=== PATIENT | male | born 1980 ===

== ENCOUNTER 2016-12-04 01:06 | Emergency (ER) | payer OTHER ==
[2016-12-04 02:08] LABS: BASO % 0.6 % (0.0-2.0); EOS # 0.2 K/uL (0.0-0.7); EOS % 3.5 % (0.0-4.0); HEMATOCRIT 45.6 % (35.0-51.0); LYMPH # 1.9 K/uL (1.0-4.3); LYMPH % 30.1 % (20.0-40.0); MEAN CELL VOLUME 89.7 fl (80.0-94.0); MEAN CORPUSCULAR HEMOGLOBIN 30.4 pg (27.0-31.0); MEAN CORPUSCULAR HGB CONC 33.9 g/dL (33.0-37.0); MEAN PLATELET VOLUME 7.5 fl (7.2-11.7); MONO # 0.6 K/uL (0.0-0.8); MONO % 9.7 % (0.0-10.0); NEUT # 3.5 K/uL (1.8-7.0); NEUT % 56.1 % (50.0-75.0); RED CELL DISTRIBUTION WIDTH 13.9 % (11.5-14.5); WHITE BLOOD COUNT 6.3 K/uL (4.8-10.8)
[2016-12-04 02:09] LABS: RBC URINE 1 /hpf (0-3); URINE BACTERIA RARE (<OCC); URINE BILIRUBIN NEGATIVE (NEGATIVE); URINE BLOOD NEGATIVE (NEGATIVE); URINE COLOR YELLOW (YELLOW); URINE GLUCOSE (UA) NEG (Normal); URINE KETONE NEGATIVE (NEGATIVE); URINE LEUKOCYTE ESTERASE NEG Leu/uL (Negative); URINE PROTEIN NEGATIVE (NEGATIVE); URINE UROBILINOGEN 0.2-1.0 mg/dL (0.2-1.0); WBC URINE < 1 /hpf (0-5)
[2016-12-04 02:17] LABS: ALB/GLOB RATIO 1.5 (1.0-2.1); ALCOHOL SERUM 48 mg/dl (0-10); ALKALINE PHOSPHATASE 50 U/L (38-126); ALT/SGPT 60 U/L (21-72); AST/SGOT 50 U/L (17-59); BILIRUBIN,TOTAL 0.3 mg/dl (0.2-1.3); BLOOD UREA NITROGEN 22 mg/dl (9-20); CALCIUM 9.4 mg/dL (8.4-10.2); CARBON DIOXIDE 22 mmol/L (22-30); CHLORIDE 102 mmol/L (98-107); GFR AFRICAN-AMERICAN > 60; GLUCOSE,RANDOM 83 mg/dL (75-110); POTASSIUM 3.6 MMOL/L (3.6-5.0); SODIUM 137 mmol/l (132-148); TOTAL PROTEIN 8.1 G/DL (6.3-8.2)
[2016-12-04 02:32] LABS: PARTIAL THROMBOPLASTIN TIME 35.7 Seconds (25.6-37.1)
--- NOTE | 2016-12-04 03:24 | ED PDOC ---
HPI: General Adult Time Seen by Provider: 12/04/16 01:14 Chief Complaint (Nursing): Altered Mental Status Chief Complaint (Provider): AMS, headache History Per: Patient History/Exam Limitations: no limitations Onset/Duration Of Symptoms: Mins Have you had recent travel within the past 21 days to any of the following countries: [place], [place], [place] or [place]?: No Current Symptoms Are (Timing): Still Present Additional Complaint(s): 36yo male with PMHx including depression and Graves' Disease presents to the ED for evaluation of AMS and headache. Patient was brought to the ED after he had an argument with his boyfriend and subsequently felt confused and complained of a headache. On arrival to ED, patient oriented to person and place but not time. Admits to moderate alcohol use but denies drug use. Past Medical History Reviewed: Historical Data, Nursing Documentation, Vital Signs Vital Signs: Last Vital Signs Temp 97.4 F L 12/04/16 01:19 Pulse 73 12/04/16 01:19 Resp 16 12/04/16 01:19 BP 125/81 12/04/16 01:19 Pulse Ox 98 12/04/16 03:29 - Medical History PMH: Depression, Graves' Disease - Surgical History Surgical History: No Surg Hx - Family History Family History: States: No Known Family Hx - Social History Current smoker - smoking cessation education provided: No Alcohol: Occasional Drugs: Denies - Allergies Allergies/Adverse Reactions: Allergies Allergy/AdvReac Type Severity Reaction Status Date / Time No Known Allergies Allergy Verified 12/04/16 01:16 Review of Systems ROS Statement: Except As Marked, All Systems Reviewed And Found Negative Neurological: Positive for: Altered Mental Status, Headache Physical Exam - Reviewed Nursing Documentation Reviewed: Yes Vital Signs Reviewed: Yes - Physical Exam Appears: Positive for: Well, No Acute Distress Head Exam: Positive for: ATRAUMATIC, NORMAL INSPECTION, NORMOCEPHALIC Skin: Positive for: Normal Color, Warm, Dry Eye Exam: Positive for: Normal appearance, EOMI, PERRL ENT: Positive for: Normal ENT Inspection Neck: Positive for: Normal, Painless ROM, Supple Cardiovascular/Chest: Positive for: Regular Rate, Rhythm. Negative for: Murmur , Tachycardia Respiratory: Positive for: Normal Breath Sounds. Negative for: Wheezing, Respiratory Distress Gastrointestinal/Abdominal: Positive for: Normal Exam, Soft. Negative for: Tenderness Back: Positive for: Normal Inspection. Negative for: L CVA Tenderness, R CVA Tenderness Extremity: Positive for: Normal ROM. Negative for: Deformity, Swelling Neurologic/Psych: Positive for: Alert, Oriented (to person and place ) - Laboratory Results Result Diagrams: 12/04/16 01:55 12/04/16 01:55 - ECG O2 Sat by Pulse Oximetry: 98 Pulse Ox Interpretation: Normal (RA) Medical Decision Making Medical Decision Makin: Impression: 36yo male w/ AMS and headache Plan: CT head EKG Labs Tylenol 975mg PO, IVF reassess 0241: CT head impression: No acute intracranial findings. Clinical correlation and followup is recommended as clinically warranted. 0335: Labs reviewed, show no clinically significant abnormalities. Crisis eval was ordered because patient admitted to using 3 tabs of adderall instead of 1. cargo station worker evaluated and cleared patient for discharge. Dx: amphetamine abuse, stress reaction stable Scribe Attestation: Documented by Jan Li acting as a scribe for Ady Thakkar MD. Provider Scribe Attestation: All medical record entries made by the Scribe were at my direction and personally dictated by me. I have reviewed the chart and agree that the record accurately reflects my personal performance of the history, physical exam, medical decision making, and the department course for this patient. I have also personally directed, reviewed, and agree with the discharge instructions and disposition. Disposition - Clinical Impression Clinical Impression: Stress reaction, Amphetamine abuse - Patient ED Disposition Is Patient to be Admitted: No - Disposition Referrals: [facility] [Outside] Disposition: Routine/Home Disposition Time: 03:35 Condition: STABLE Instructions: Stress (ED)
[2016-12-04 03:46] VITALS: BP 130/71; PULSE 68; RESP 17; TEMP 98; O2SAT 99
--- NOTE | 2016-12-04 09:31 | CT ---
PROCEDURE: CT HEAD WITHOUT CONTRAST. HISTORY: headache COMPARISON: None available. TECHNIQUE: Axial computed tomography images were obtained through the head/brain without intravenous contrast. Radiation dose: Total exam DLP = 850.37 mGy-cm. This CT exam was performed using one or more of the following dose reduction techniques: Automated exposure control, adjustment of the mA and/or kV according to patient size, and/or use of iterative reconstruction technique. FINDINGS: HEMORRHAGE: No intracranial hemorrhage. BRAIN: No mass effect or edema. No atrophy or chronic microvascular ischemic changes. VENTRICLES: Unremarkable. No hydrocephalus. CALVARIUM: Unremarkable. PARANASAL SINUSES: Unremarkable as visualized. No significant inflammatory changes. MASTOID AIR CELLS: Unremarkable as visualized. No inflammatory changes. OTHER FINDINGS: None. IMPRESSION: No acute intracranial hemorrhage.
--- NOTE | 2016-12-04 13:19 | CARD ---
APPROVED REPORT EKG Measurement Heart [id number] [id number] <Conclusion> Normal sinus rhythm with sinus arrhythmia Incomplete right bundle branch block Borderline ECG
== END 2016-12-04 03:43 | disposition home or self-care (01) ==
LOC: H.ER 01:06
DX: F43.9 Reaction to severe stress, unspecified (principal); F15.10 Other stimulant abuse, uncomplicated

== ENCOUNTER 2016-12-12 16:05 | Inpatient (IN) | payer OTHER ==
--- NOTE | 2016-12-12 16:58 | ED PDOC ---
HPI: Altered Mental Status Time Seen by Provider: 12/12/16 16:19 Chief Complaint (Nursing): Altered Mental Status Chief Complaint (Provider): Altered Mental Status History Per: Patient History/Exam Limitations: Clinical Condition (altered mental status ) Onset/Duration Of Symptoms: Days (x14) Additional History Per: Family (patient's partner ) Additional Complaint(s): Florian Basilio, 36 year old male presents to the ED on 12/12/16 accompanied by EMS after experiencing a fall. The patients partner was present and reports that for the past 2 weeks the patient has been having episodes of on and off confusion returning to baseline. The patient injured his head and left shoulder after falling down the stairs today. The patients partner reports that the patient has previous psychological issues, stating that he could be potentially manic. He also reports that yesterday the patient cleaned the entire house and does not remember doing so. Of note, the patients partner reports that he takes different medications, such as Zoloft, for his psychological issues. He is also pre-diabetic. Doctor has recently started changing his meds as he has a new doctor. Unclear if LOC from injury. Pt. occasionally not remembering partner. Denies any chest pain, dyspnea. Very upset and agitated. Wants to leave. Denies any drugs or etoh. Past Medical History Reviewed: Historical Data, Nursing Documentation, Vital Signs Vital Signs: Last Vital Signs Temp 98.3 F 12/12/16 16:13 Pulse 93 H 12/12/16 16:13 Resp 16 12/12/16 16:13 BP 146/86 12/12/16 16:13 Pulse Ox 100 12/12/16 16:13 - Medical History PMH: Depression, Graves' Disease, HIV Denies: Diabetes, Hepatitis, HTN, Seizures, Sexually Transmitted Disease - Surgical History Surgical History: No Surg Hx - Family History Family History: States: Unknown Family Hx - Living Arrangements Living Arrangements: With Family - Social History Current smoker - smoking cessation education provided: No Alcohol: None Drugs: Denies - Home Medications Home Medications: Ambulatory Orders Medication Instructions Recorded Dextroamphetamine/Amphetamine 10 mg PO DAILY 12/12/16 [Adderall 10 mg Tablet] Sertraline [Zoloft] 25 mg PO DAILY 12/12/16 buPROPion XL [Wellbutrin XL] 150 mg PO DAILY 06/23/17 clonazePAM [Klonopin] 0.5 mg PO BID PRN 12/12/16 - Allergies Allergies/Adverse Reactions: Allergies Allergy/AdvReac Type Severity Reaction Status Date / Time No Known Allergies Allergy Verified 12/12/16 16:13 Review of Systems Review Of Systems: ROS cannot be obtained secondary to pt's inabilty to answer questions. Musculoskeletal: Positive for: Shoulder Pain (left ), Arm Pain (left ), Other ( pain localized to back of the head ) Neurological: Positive for: Confusion, Altered Mental Status, Headache Psych: Positive for: Other (agitation) Physical Exam - Reviewed Nursing Documentation Reviewed: Yes Vital Signs Reviewed: Yes - Physical Exam Appears: Positive for: Non-toxic, No Acute Distress Head Exam: Positive for: NORMOCEPHALIC. Negative for: ATRAUMATIC (mild tender back of head) Skin: Positive for: Normal Color, Warm, Dry Eye Exam: Positive for: Normal appearance, EOMI, PERRL Neck: Positive for: Normal, Painless ROM, Supple Cardiovascular/Chest: Positive for: Regular Rate, Rhythm, Chest Non Tender Respiratory: Positive for: Normal Breath Sounds. Negative for: Respiratory Distress Gastrointestinal/Abdominal: Positive for: Normal Exam, Soft. Negative for: Tenderness Back: Positive for: Normal Inspection. Negative for: L CVA Tenderness, R CVA Tenderness Extremity: Positive for: Tenderness (R shoulder). Negative for: Normal ROM ( decreased ROM of R shoulder due to pain) Neurologic/Psych: Positive for: Alert, Oriented (with confusion), Other ( ambulating with no issues; not cooperative with full neurological exam). Negative for: Gait, Facial Droop - Laboratory Results Result Diagrams: 12/12/16 17:05 12/12/16 17:05 Interpretation Of Abn Labs: cr 1.7 - ECG ECG: Positive for: Interpreted By Me, Viewed By Id ECG Rhythm: Positive for: Normal QRS, Normal ST Segment, Sinus Rhythm O2 Sat by Pulse Oximetry: 100 (RA) Pulse Ox Interpretation: Normal - Radiology X-Ray: Interpreted by Me X-Ray Interpretation: No Acute Disease - CT Scan/US head Other Rad Studies (CT/US): Read By Radiologist Other Rad Interpretation: no acute - Progress ED Course And Treament: 1830: Stable. Alert. Crisis saw pt. Will admit for psych eval. Pt. medically stable. Cr elevated chronically as per review of labs. Medical Decision Making Medical Decision Making: Initial Impression: Altered Mental Status Patient attempted elopement Initial Plan: * CT Head W/O Contrast Stat * ED EKG Stat * Alcohol Serum Stat * COMP Metabolic Panel Stat * Drug Screen, Urine Stat * CBC (With Differential) Stat * POC [Glucose, Blood, POC] Stat * Shoulder Right [RAD] Stat * Ativan 2 mg IM Stat * Haldol 5 mg IM Once * Restraint: Violent or harm to self/other as Ordered Scribe Attestation: Documented by Megha Flores, acting as a scribe for Burak Sanders MD. Provider Scribe Attestation: All medical record entries made by the Scribe were at my direction and personally dictated by me. I have reviewed the chart and agree that the record accurately reflects my personal performance of the history, physical exam, medical decision making, and the department course for this patient. I have also personally directed, reviewed, and agree with the discharge instructions and disposition. 1700: Pt. very agitated. Refused any evaluation. Started running out of the ER. Police found and brought pt. back. Pt. yelling and being a threat to staff and self. Will give ativan and haldol for psychotic behavior. History of amphetamine use and alcohol in November 2016 when he came here for confusion. Partner agree that this is not normal behavior and pt. very aggressive. Agrees staff needs to use medication and possible restraints to manage him. 1749: Stable. More cooperative. Pending crisis eval. Disposition - Clinical Impression Clinical Impression: Head injury, Shoulder injury, Depression, Chronic renal insufficiency - Patient ED Disposition Is Patient to be Admitted: Yes Counseled Patient/Family Regarding: Studies Performed, Diagnosis - Disposition Disposition Time: 19:42 Condition: STABLE - Pt Status Changed To: Hospital Disposition Of: Inpatient - Admit Certification Admit to Inpatient:: After my assessment, the patient will require hospitalization for at least two midnights. This is because of the severity of symptoms shown, intensity of services needed, and/or the medical risk in this patient being treated as an outpatient. - POA Present On Arrival: Falls Or Trauma
[2016-12-12 17:20] LABS: BASO # 0.1 K/uL (0.0-0.2); BASO % 0.5 % (0.0-2.0); EOS # 0.1 K/uL (0.0-0.7); EOS % 0.8 % (0.0-4.0); HEMATOCRIT 48.3 % (35.0-51.0); LYMPH # 2.3 K/uL (1.0-4.3); LYMPH % 24.2 % (20.0-40.0); MEAN CELL VOLUME 90.7 fl (80.0-94.0); MEAN CORPUSCULAR HEMOGLOBIN 30.5 pg (27.0-31.0); MEAN CORPUSCULAR HGB CONC 33.6 g/dL (33.0-37.0); MEAN PLATELET VOLUME 7.2 fl (7.2-11.7); MONO # 0.7 K/uL (0.0-0.8); MONO % 6.9 % (0.0-10.0); NEUT # 6.4 K/uL (1.8-7.0); NEUT % 67.6 % (50.0-75.0); NRBC % 0.1 % (0.0-0.0); RED CELL DISTRIBUTION WIDTH 13.7 % (11.5-14.5); WHITE BLOOD COUNT 9.5 K/uL (4.8-10.8)
[2016-12-12 17:31] LABS: ALCOHOL SERUM < 10 mg/dl (0-10); ALKALINE PHOSPHATASE 56 U/L (38-126); ALT/SGPT 56 U/L (21-72); AST/SGOT 53 U/L (17-59); BILIRUBIN,TOTAL 0.4 mg/dl (0.2-1.3); BLOOD UREA NITROGEN 16 mg/dl (9-20); CALCIUM 9.4 mg/dL (8.4-10.2); CARBON DIOXIDE 21 mmol/L (22-30); CHLORIDE 100 mmol/L (98-107); GFR AFRICAN-AMERICAN 55; GLUCOSE,RANDOM 107 mg/dL (75-110); POTASSIUM 3.9 MMOL/L (3.6-5.0); SODIUM 138 mmol/l (132-148); TOTAL PROTEIN 8.9 G/DL (6.3-8.2)
--- NOTE | 2016-12-12 17:31 | CT ---
PROCEDURE: CT HEAD WITHOUT CONTRAST. HISTORY: headache COMPARISON: Noncontrast head CT performed 12/04/16 TECHNIQUE: Axial computed tomography images were obtained through the head/brain without intravenous contrast. Radiation dose: Total exam DLP = 833.11 mGy-cm. This CT exam was performed using one or more of the following dose reduction techniques: Automated exposure control, adjustment of the mA and/or kV according to patient size, and/or use of iterative reconstruction technique. FINDINGS: HEMORRHAGE: No intracranial hemorrhage. BRAIN: No mass effect or edema. The white-white matter differentiation appears intact. Please note that MRI with diffusion imaging is more sensitive in the detection of acute ischemic event. VENTRICLES: No hydrocephalus. CALVARIUM: Unremarkable. PARANASAL SINUSES: Unremarkable as visualized. No significant inflammatory changes. MASTOID AIR CELLS: Unremarkable as visualized. No inflammatory changes. OTHER FINDINGS: None. IMPRESSION: No acute intracranial pathology identified.
[2016-12-12 17:32] LABS: ALB/GLOB RATIO 1.3 (1.0-2.1)
--- NOTE | 2016-12-12 18:32 | RAD ---
PROCEDURE: Radiographs of the Right Shoulder HISTORY: shoulder pain COMPARISON: Chest x-ray performed 08/29/16 FINDINGS: BONES: No acute displaced fracture. The distal clavicle and underlying ribs appear intact. JOINTS: No acute dislocation. SOFT TISSUES: Soft tissues appear unremarkable. No evidence of radiopaque foreign body. IMPRESSION: No acute displaced fracture or dislocation evident. If symptoms persist or if there is continued clinical concern, x-ray follow-up in 7-10 days should be considered.
[2016-12-12 23:39] LABS: RBC URINE < 1 /hpf (0-3); URINE BILIRUBIN NEGATIVE (NEGATIVE); URINE BLOOD NEGATIVE (NEGATIVE); URINE COLOR STRAW (YELLOW); URINE GLUCOSE (UA) NEG (Normal); URINE KETONE NEGATIVE (NEGATIVE); URINE LEUKOCYTE ESTERASE NEG Leu/uL (Negative); URINE PROTEIN NEGATIVE (NEGATIVE); URINE UROBILINOGEN 0.2-1.0 mg/dL (0.2-1.0); WBC URINE < 1 /hpf (0-5)
--- NOTE | 2016-12-13 00:19 | ED PDOC ---
- Laboratory Results Result Diagrams: 12/12/16 17:05 12/12/16 17:05 - ECG O2 Sat by Pulse Oximetry: 100 (RA) Pulse Ox Interpretation: Normal Medical Decision Making Medical Decision Making: Time: 0000 Initial impression: Altered Mental Status Initial plan: --0000: Transfer of Care from Dr. Sanders Pending [facility] Evaluation Screening Scribe Attestation: Documented by Jessica Prince, acting as a scribe for Taj Mcdowell MD MD Scribe Attestation: All medical record entries made by the Scribe were at my direction and personally dictated by me. I have reviewed the chart and agree that the record accurately reflects my personal performance of the history, physical exam, medical decision making, and the department course for this patient. I have also personally directed, reviewed, and agree with the discharge instructions and disposition. Disposition - Clinical Impression Clinical Impression: Head injury, Shoulder injury, Depression, Chronic renal insufficiency - Disposition Condition: STABLE
[2016-12-13] MEDS ORDERED: Levothyroxine 125 MCG TAB PO SCH (06:30)
--- NOTE | 2016-12-13 07:24 | ED PDOC ---
- Laboratory Results Result Diagrams: 12/12/16 17:05 12/12/16 17:05 - ECG O2 Sat by Pulse Oximetry: 100 (RA) Pulse Ox Interpretation: Normal Medical Decision Making Medical Decision Makin:00 Patient was signed out to me by Taj Mcdowell MD pending [facility] evaluation. 11:31 Patient was screened by [facility] and cleared for discharge. 11:42 Patient is going to be discharged with a copy of the lab results as per their request. Scribe Attestation: Documented by Anjana Mitchell, acting as a scribe for Anjana Ramirez MD. Provider Scribe Attestation: All medical record entries made by the Scribe were at my direction and personally dictated by me. I have reviewed the chart and agree that the record accurately reflects my personal performance of the history, physical exam, medical decision making, and the department course for this patient. I have also personally directed, reviewed, and agree with the discharge instructions and disposition. Disposition - Clinical Impression Clinical Impression: Head injury, Shoulder injury, Depression, ADHD, ADD (attention deficit disorder ), Renal insufficiency - Disposition Condition: STABLE
[2016-12-13 07:52] VITALS: BP 129/73; PULSE 76; RESP 16; TEMP 98.9
[2016-12-13] MEDS ORDERED: buPROPion SR 150 MG TABLET PO STA (08:29)
--- NOTE | 2016-12-13 09:26 | RAD ---
HISTORY: crisis eval COMPARISON: 08/29/16. FINDINGS: LUNGS: Tiny nodular densities seen both lung base could represent vessel on end or nipple shadow artifact however granulomata not excluded. . Followup nonemergent CT scan chest recommended. PLEURA: No significant pleural effusion identified, no pneumothorax apparent. CARDIOVASCULAR: Normal. OSSEOUS STRUCTURES: No significant abnormalities. VISUALIZED UPPER ABDOMEN: Normal. OTHER FINDINGS: None. IMPRESSION: Tiny nodular densities seen both lung base could represent vessel on end or nipple shadow artifact however granulomata not excluded. . Followup nonemergent CT scan chest recommended. This report was placed in [place] review folder followup
[2016-12-13 11:32] VITALS: O2SAT 100
--- NOTE | 2016-12-13 14:06 | CARD ---
APPROVED REPORT EKG Measurement Heart [id number] 176P55 [id number] <Conclusion> Poor data quality, interpretation may be adversely affected Normal sinus rhythm Normal ECG
== END 2016-12-13 11:46 | disposition home or self-care (01) | DRG 914 ==
LOC: H.ER 16:05 → H.ERHOLD 18:51
PROVIDERS: ADMIT Psychiatry & Neurology Psychiatry; ATTEND Psychiatry & Neurology Psychiatry
DX: S09.90XA Unspecified injury of head, initial encounter (principal); F32.9 Major depressive disorder, single episode, unspecified; S49.82XA Other specified injuries of left shoulder and upper arm, initial encounter; F90.9 Attention-deficit hyperactivity disorder, unspecified type; F98.8 Other specified behavioral and emotional disorders with onset usually occurring in childhood and adolescence; N18.9 Chronic kidney disease, unspecified; R73.03 Prediabetes; Z21 Asymptomatic human immunodeficiency virus [HIV] infection status; W10.9XXA Fall (on) (from) unspecified stairs and steps, initial encounter; Y92.009 Unspecified place in unspecified non-institutional (private) residence as the place of occurrence of the external cause

== ENCOUNTER 2017-09-27 12:34 | Emergency (ER) | payer SELFPAY ==
[2017-09-27 12:42] VITALS: BP 123/71; PULSE 67; RESP 20; TEMP 98.7; O2SAT 97
[2017-09-27 12:43] VITALS: BMI 28.1
--- NOTE | 2017-09-27 13:19 | ED PDOC ---
HPI: Abdomen Time Seen by Provider: 09/27/17 12:45 Chief Complaint (Nursing): Abdominal Pain History Per: Patient Onset/Duration Of Symptoms: Other (wks) Additional Complaint(s): 36-year-old male with past medical history of HIV, hypothyroidism complains of intermittent periumbilical abdominal pain, which was initially in the left side of his abdomen and now mostly in the right side of his abdomen, reports that his abdominal pain is better during today and worse at night. Reports taking [id number] Nexium and Gas-X with no improvement of his symptoms. Patient states that he's had similar symptoms 2 years ago when he was residing in [place] GI doctor who did an extensive evaluation on him including labs, abdominal ultrasound, stool tests and an endoscopy which were all within normal limits and he was ultimately diagnosed with gastritis, given prescription for Bentyl which alleviated his symptoms. Patient states that he has a PMD in [place], he had normal blood work done one week ago and he is refusing any blood work done here today, only is requesting for a dose of Bentyl to alleviate his abdominal pain. Patient states that she is on medications for his HIV, his viral load is undetectable, and that his CD4 count is "good." Otherwise: (-) vomiting, (+) diarrhea x 1 day - 3 days ago, none since, (+) constipation, (-) fever, (-) melena, (-) hematochezia, (-) urinary symptoms. Has no history of prior abdominal surgery. Past Medical History Vital Signs: Last Vital Signs Temp 98.7 F 09/27/17 12:42 Pulse 67 09/27/17 12:42 Resp 20 09/27/17 12:42 BP 123/71 09/27/17 12:42 Pulse Ox 97 09/27/17 13:39 - Medical History PMH: Depression, Graves' Disease, HIV Denies: Diabetes, Hepatitis, HTN, Seizures, Sexually Transmitted Disease - Family History Family History: States: Unknown Family Hx - Home Medications Home Medications: Ambulatory Orders Medication Instructions Recorded Dextroamphetamine/Amphetamine 10 mg PO DAILY 12/12/16 [Adderall 10 mg Tablet] Sertraline [Zoloft] 25 mg PO DAILY 12/12/16 buPROPion XL [Wellbutrin XL] 150 mg PO DAILY 12/12/16 clonazePAM [Klonopin] 0.5 mg PO BID PRN 12/12/16 Dicyclomine [Bentyl] 20 mg PO QID PRN #20 tab 09/27/17 - Allergies Allergies/Adverse Reactions: Allergies Allergy/AdvReac Type Severity Reaction Status Date / Time No Known Allergies Allergy Verified 09/27/17 12:40 Review of Systems Constitutional: Negative for: Fever, Weakness, Malaise Cardiovascular: Negative for: Chest Pain, Palpitations, Edema Respiratory: Negative for: Cough, Shortness of Breath, Wheezing Gastrointestinal: Positive for: Abdominal Pain, Diarrhea, Constipation. Negative for: Nausea, Vomiting Genitourinary Male: Negative for: Dysuria, Frequency Musculoskeletal: Negative for: Neck Pain, Back Pain Skin: Negative for: Rash, Lesions, Jaundice Neurological: Negative for: Weakness, Numbness Physical Exam - Reviewed Vital Signs Reviewed: Yes - Physical Exam Comments: GENERAL APPEARANCE: Patient is awake, alert, oriented x 3, in no acute distress. Patient is laying in bed comfortably SKIN: Warm, dry; (-) cyanosis. EYES: (-) conjunctival pallor, (-) scleral icterus. ENMT: Mucous membranes moist. NECK: (-) tenderness, (-) stiffness, (-) lymphadenopathy. CHEST AND RESPIRATORY: (-) rales, (-) rhonchi, (-) wheezes; breath sounds equal bilaterally. HEART AND CARDIOVASCULAR: (-) irregularity; (-) murmur, (-) gallop. ABDOMEN AND GI: (-) distention. Bowel sounds active; (-) tenderness to deep palpation, (-) guarding, (-) rebound, (-) palpable masses, (-) CVA tenderness. EXTREMITIES: (-) deformity, (-) edema, (+) distal pulses. NEURO AND PSYCH: Mental status as above; (-) focal findings. - ECG O2 Sat by Pulse Oximetry: 97 Medical Decision Making Medical Decision Making: Impression : IBS, consider gastritis Plan : - Labs - pt refused - AXR - pt refused - Bentyl 20 mg PO Labs and AXR offered to the patient, however he is refusing, stating that he knows bentyl will alleviate his symptoms and does not want any other test to be performed at this time. On re-evaluation, patient is resting comfortably in no acute distress, reports no other complaints at this time. Reports improvement in pain. On exam, lungs are clear, cardiac RRR, abdomen is soft with no tenderness, no guarding. Based on history and exam, plan will be for outpatient follow-up with PMD and with GI referral provided. Advised to follow up with primary care physician and GI referral provided in 1- 2 days without fail. Advised to take medication as prescribed. Return to the emergency room at any time for any new or worsening symptoms. Patient states he fully agrees with and understands discharge instructions. States that he agrees with the plan and disposition. Verbalized and repeated discharge instructions and plan. I have given the patient opportunity to ask any additional questions. Disposition - Clinical Impression Clinical Impression: Abdominal pain - Patient ED Disposition Is Patient to be Admitted: No Counseled Patient/Family Regarding: Diagnosis, Need For Followup, Rx Given - Disposition Referrals: Sukhwinder Enriquez MD [Medical Doctor] - Disposition: Routine/Home Disposition Time: 13:30 Condition: STABLE Additional Instructions: Thank you for letting us take care of you today. You were treated for abdominal pain. The emergency medical care you received today was directed at your acute symptoms. If you were prescribed any medication, please fill it and take as directed. It may take several days for your symptoms to resolve. Return to the Emergency Department if your symptoms worsen, do not improve, or if you have any other problems. Please contact your doctor in 2 days for re-evaluation and follow up / or call one of the GI doctor you have been referred to that are listed on the Patient Visit Information form that is included in your discharge packet. Bring any paperwork you were given at discharge with you along with any medications you are taking to your follow up visit. Our treatment cannot replace ongoing medical care by a primary care provider (PCP) outside of the emergency department. Thank you for allowing the [facility] team to be part of your care today. Prescriptions: Dicyclomine [Bentyl] 20 mg PO QID PRN #20 tab PRN Reason: Other Instructions: Acute Abdomen (Belly Pain), Adult (DC) Forms: [employer] ([place]), [facility] ED School/Work Excuse
== END 2017-09-27 13:55 | disposition home or self-care (01) ==
LOC: H.ER 12:34
DX: R10.9 Unspecified abdominal pain (principal); Z86.59 Personal history of other mental and behavioral disorders; B20 Human immunodeficiency virus [HIV] disease; E05.00 Thyrotoxicosis with diffuse goiter without thyrotoxic crisis or storm

== ENCOUNTER 2017-09-28 10:52 | Emergency (ER) | payer SELFPAY ==
[2017-09-28 10:52] VITALS: BMI 28.1
[2017-09-28] MEDS ORDERED: Sodium Chloride 0.9% 1,000 ML IV STA (12:06)
[2017-09-28] MEDS ORDERED: Iohexol 240 (50 ml) PO ONE (12:07)
[2017-09-28] MEDS ORDERED: Iohexol 240 (50 ml) ONE ×2 (12:26→13:53)
[2017-09-28] MEDS ORDERED: Morphine 4 MG/ML VIAL ONE ×2 (12:26→13:11)
[2017-09-28] MEDS ORDERED: Morphine 4 MG/ML VIAL IVP ONE (12:45)
[2017-09-28 12:58] LABS: BASO % 0.3 % (0.0-2.0); EOS % 0.1 % (0.0-4.0); LYMPH # 0.9 K/uL (1.0-4.3); LYMPH % 9.6 % (20.0-40.0); MEAN CELL VOLUME 85.8 fl (80.0-94.0); MEAN CORPUSCULAR HEMOGLOBIN 30.2 pg (27.0-31.0); MEAN CORPUSCULAR HGB CONC 35.2 g/dL (33.0-37.0); MONO # 1.1 K/uL (0.0-0.8); MONO % 11.1 % (0.0-10.0); NEUT # 7.8 K/uL (1.8-7.0); NEUT % 78.9 % (50.0-75.0); PLATELET COUNT 315 K/uL (130-400); RBC 4.69 Mil/uL (4.40-5.90); RED CELL DISTRIBUTION WIDTH 13.4 % (11.5-14.5); WHITE BLOOD COUNT 9.9 K/uL (4.8-10.8)
[2017-09-28 13:02] LABS: HEMOGLOBIN 14.2 g/dL (12.0-18.0)
[2017-09-28 13:03] LABS: ALBUMIN 4.4 g/dL (3.5-5.0); ALT/SGPT 43 U/L (21-72); AST/SGOT 30 U/L (17-59); BLOOD UREA NITROGEN 13 mg/dl (9-20); CALCIUM 9.4 mg/dL (8.4-10.2); GFR AFRICAN-AMERICAN > 60; GFR NON-AFRICAN AMERICAN > 60; LIPASE 44 U/L (23-300)
[2017-09-28] MEDS ORDERED: Morphine 4 MG/ML VIAL IVP STA (13:09)
[2017-09-28] MEDS ORDERED: cefTRIAXone (Rocephin) 1 gm Inj ONE (13:11)
[2017-09-28 13:12] LABS: VENOUS BLOOD GAS BASE EXCESS 5.3 mmol/L (0.0-2.0); VENOUS BLOOD GAS PCO2 46 mmHg (40-60); VENOUS BLOOD GAS PO2 17 mm/Hg (30-55); VENOUS BLOOD PH 7.43 (7.32-7.43)
[2017-09-28 13:26] LABS: URINE BILIRUBIN NEGATIVE (NEGATIVE); URINE BLOOD LARGE (NEGATIVE); URINE CLARITY SLIGHT-CLOUDY (Clear); URINE COLOR YELLOW (YELLOW); URINE GLUCOSE (UA) NEGATIVE (Normal)
[2017-09-28 13:27] LABS: SQUAMOUS EPITHIAL 2 /hpf (0-5); URINE LEUKOCYTE ESTERASE TRACE Leu/uL (Negative); URINE PROTEIN >=300 mg/dL (NEGATIVE); URINE UROBILINOGEN 0.2 mg/dL (0.2-1.0)
[2017-09-28 13:28] LABS: URINE AMORPHOUS SEDIMENT OCC /ul (<OCC); URINE BACTERIA MANY (<OCC)
--- NOTE | 2017-09-28 13:50 | US ---
HISTORY: R testicular pain TECHNIQUE: Realtime sonography through the scrotum with color and doppler flow. COMPARISON: None Available. FINDINGS: The testicles are not visualized. Per the chief cardiopulmonary technologist note, the patient underwent cosmetic surgery on the scrotum approximately 3 years ago and prior ultrasounds reportedly have also been unable to visualize the testicles. IMPRESSION: Nonvisualization of the testicles.
[2017-09-28 14:43] LABS: BANDS 2 % (0-2); LYMPHOCYTE 10 % (20-50); MONOCYTE 11 % (0-10); NEUTROPHIL 76 % (42-75); PLATELET ESTIMATE NORMAL (NORMAL); REACTIVE LYMPHOCYTES 1 % (0-0); TOTAL CELLS COUNTED 100
[2017-09-28 14:52] VITALS: BP 122/76; PULSE 78; RESP 18; TEMP 99.8; O2SAT 98
--- NOTE | 2017-09-30 12:32 | ED PDOC ---
HPI: Abdomen Time Seen by Provider: 09/28/17 11:21 Chief Complaint (Nursing): Abdominal Pain History Per: Patient Additional Complaint(s): Pt. states for the past several days he's had abd pain associated with dysuria. Pt. states he was seen in this ED yesterday and was given Bentyl as he requested and refused diagnostics. States he's had similar symptoms in the past and was dx with "PID." Further states also having LUQ and not chest pain contrary to triage note. Also states abd pain radiates down to R scrotal area. Of note, pt. is HIV+ and viral load and CD have been WNL. Last checked was last month. Pt. is compliant with his meds. Denies having fever at home, N/V/D, penile discharge, pelvic trauma, previous abd surgeries. Against Medical Advice - AMA Patient Left Against Medical Advice: The patient declines admission to the hospital and wishes to leave the Emergency Department. This action is against my medical advice. This decision was made with informed refusal. The patient was told that admission to the hospital is necessary. Explanation of the reasons why were discussed. The risks of leaving were explained to the patient and include, but are not limited to, worsening of known or currently unknown conditions, permanent disability and from undiagnosed or untreated conditions. The patient has the capacity to make this informed decision and understands my explanation of the current medical problem and risks of leaving. The patient voluntarily accepts these risks and signed an AMA form documenting our conversation. The patient was given the opportunity to ask questions and reconsider. The patient was encouraged to return to the Emergency Department at any time for further care. 09/28/17 14:45 Advised to return to ED immediately as he requires CT and possible admission into hospital. Pt. states he will return if pain returns. Past Medical History Reviewed: Historical Data, Nursing Documentation, Vital Signs Vital Signs: Last Vital Signs Temp 99.8 F H 09/28/17 14:50 Pulse 78 09/28/17 14:50 Resp 18 09/28/17 14:50 BP 122/76 09/28/17 14:50 Pulse Ox 98 09/28/17 14:50 - Medical History PMH: Depression, Graves' Disease, HIV Denies: Diabetes, Hepatitis, HTN, Seizures, Sexually Transmitted Disease - Surgical History Other surgeries: scrotal silicone implants - Family History Family History: States: No Known Family Hx - Home Medications Home Medications: Ambulatory Orders Medication Instructions Recorded Dextroamphetamine/Amphetamine 10 mg PO DAILY 12/12/16 [Adderall 10 mg Tablet] Sertraline [Zoloft] 25 mg PO DAILY 12/12/16 buPROPion XL [Wellbutrin XL] 150 mg PO DAILY 12/12/16 clonazePAM [Klonopin] 0.5 mg PO BID PRN 12/12/16 Dicyclomine [Bentyl] 20 mg PO QID PRN #20 tab 09/27/17 Doxycycline Hyclate [Doryx] 100 mg PO BID #14 cap 09/28/17 - Allergies Allergies/Adverse Reactions: Allergies Allergy/AdvReac Type Severity Reaction Status Date / Time No Known Allergies Allergy Verified 09/27/17 12:40 Review of Systems ROS Statement: Except As Marked, All Systems Reviewed And Found Negative Gastrointestinal: Positive for: Abdominal Pain Genitourinary Male: Positive for: Dysuria, Scrotal Pain Physical Exam - Physical Exam Appears: Positive for: Well, Non-toxic, In Acute Distress (painful distress) Skin: Positive for: Normal Color, Warm. Negative for: Rash Eye Exam: Positive for: Normal appearance ENT: Positive for: Normal ENT Inspection Neck: Positive for: Normal, Painless ROM Cardiovascular/Chest: Positive for: Regular Rate, Rhythm Respiratory: Positive for: CNT, Normal Breath Sounds Gastrointestinal/Abdominal: Positive for: Bowel Sounds, Soft, Tenderness ( diffuse abd tenderness) Male Genital Exam: Positive for: normal genitalia. Negative for: epididymal tenderness, erythema, lesions, scrotum tenderness (R), scrotum tenderness (L), testicular tenderness (R), testicular tenderness (L), urethral discharge Back: Positive for: Normal Inspection. Negative for: L CVA Tenderness, R CVA Tenderness Neurologic/Psych: Positive for: Alert, Oriented - Laboratory Results Result Diagrams: 09/28/17 12:48 09/28/17 12:48 - ECG O2 Sat by Pulse Oximetry: 98 - Progress ED Course And Treament: Labs, IV NS bolus, motrin, CT abd/pelvis, abd US, morphine 4mg IV, zofran 4mg ODT ordered. 30 mins after administration of Morphine pt. requested additional meds and ativan. Morphine IV, ativan PO ordered. Pt requesting to be treated for PID as the symptoms are the same. Pt. states he does not want CT to be done as he is feeling much better and will sign AMA. Rocephin 1gm IV, zithromax 1gm PO ordered. Doxy Rx provided. Disposition - Clinical Impression Clinical Impression: Fever, Left against medical advice, Abdominal pain, Urethritis - Patient ED Disposition Is Patient to be Admitted: No - Disposition Disposition: Against Medical Advice Disposition Time: 14:50 Condition: GUARDED Additional Instructions: RETURN TO EMERGENCY DEPARTMENT AT ANY TIME FOR YOUR SYMPTOMS Prescriptions: Doxycycline Hyclate [Doryx] 100 mg PO BID #14 cap Instructions: Acute Abdomen (Belly Pain), Adult (DC), Urethritis (DC), Leaving Against Medical Advice Forms: [facility] ([place]), [facility] ED School/Work Excuse
== END 2017-09-28 14:45 | disposition left against medical advice (07) ==
LOC: H.ER 10:52
DX: N34.2 Other urethritis (principal); E05.00 Thyrotoxicosis with diffuse goiter without thyrotoxic crisis or storm; F32.9 Major depressive disorder, single episode, unspecified
CPT/HCPCS: 80053; 81003; 82803; 83690; 85025; 87040; 87086; 87181; 87491; 87591; 93975; 96365; 96375; 99283; J0696; J2270; J7040; Q9966

== ENCOUNTER 2017-09-28 22:59 | Emergency (ER) | payer SELFPAY ==
[2017-09-28 23:00] VITALS: BMI 28.1
[2017-09-28 23:15] VITALS: BP 136/82; PULSE 94; RESP 18; TEMP 97.7; O2SAT 98
[2017-09-28] MEDS ORDERED: Morphine 4 MG/ML VIAL IVP ONE (23:33)
[2017-09-28] MEDS ORDERED: Sodium Chloride 0.9% 1,000 ML IV STA (23:34)
[2017-09-28] MEDS ORDERED: Morphine 4 MG/ML VIAL ONE (23:46)
--- NOTE | 2017-09-29 00:13 | ED PDOC ---
HPI: Abdomen Time Seen by Provider: 09/28/17 23:19 Chief Complaint (Nursing): Abdominal Pain Chief Complaint (Provider): Abdominal Pain History Per: Patient History/Exam Limitations: no limitations Onset/Duration Of Symptoms: Days (x 2) Current Symptoms Are (Timing): Still Present Location Of Pain/Discomfort: RLQ Associated Symptoms: Nausea, Loss Of Appetite Additional Complaint(s): 36 year old male with a history of HIV, depression and hypothyroidism presents to the ED with generalized abdominal pain associated with nausea and poor appetite. He was seen several hours ago here and discharged with normal labs as well as a prescription for Doryx. Patient was informed he needed a CT that he did not accept. He returned after pain came back and is willing to have CT done. PMD: none provided (in [facility]) Past Medical History Reviewed: Historical Data, Nursing Documentation, Vital Signs Vital Signs: Last Vital Signs Temp 97.7 F 09/28/17 23:12 Pulse 94 H 09/28/17 23:12 Resp 18 09/28/17 23:12 BP 136/82 09/28/17 23:12 Pulse Ox 98 09/29/17 02:12 - Medical History PMH: Depression, Graves' Disease, HIV Denies: Diabetes, Hepatitis, HTN, Seizures, Sexually Transmitted Disease - Surgical History Other surgeries: testicular surgery - Family History Family History: States: Unknown Family Hx - Social History Current smoker - smoking cessation education provided: No Alcohol: None Drugs: Denies - Home Medications Home Medications: Ambulatory Orders Medication Instructions Recorded Dextroamphetamine/Amphetamine 10 mg PO DAILY 12/12/16 [Adderall 10 mg Tablet] Sertraline [Zoloft] 25 mg PO DAILY 12/12/16 buPROPion XL [Wellbutrin XL] 150 mg PO DAILY 12/12/16 clonazePAM [Klonopin] 0.5 mg PO BID PRN 12/12/16 Dicyclomine [Bentyl] 20 mg PO QID PRN #20 tab 09/27/17 Doxycycline Hyclate [Doryx] 100 mg PO BID #14 cap 09/28/17 - Allergies Allergies/Adverse Reactions: Allergies Allergy/AdvReac Type Severity Reaction Status Date / Time No Known Allergies Allergy Verified 09/27/17 12:40 Review of Systems ROS Statement: Except As Marked, All Systems Reviewed And Found Negative Constitutional: Positive for: Other (decreased appetite) Gastrointestinal: Positive for: Nausea, Abdominal Pain Physical Exam - Reviewed Nursing Documentation Reviewed: Yes Vital Signs Reviewed: Yes - Physical Exam Appears: Positive for: No Acute Distress, Uncomfortable Head Exam: Positive for: ATRAUMATIC, NORMOCEPHALIC Skin: Positive for: Normal Color, Warm, Dry Eye Exam: Positive for: EOMI, Normal appearance, PERRL Neck: Positive for: Normal, Painless ROM, Supple Cardiovascular/Chest: Positive for: Regular Rate, Rhythm. Negative for: Murmur Respiratory: Positive for: Normal Breath Sounds. Negative for: Respiratory Distress Gastrointestinal/Abdominal: Positive for: Tenderness (diffuse tenderness worse in RLQ) Extremity: Positive for: Normal ROM. Negative for: Deformity Neurologic/Psych: Positive for: Alert, Oriented. Negative for: Motor/Sensory Deficits - Laboratory Results Result Diagrams: 09/28/17 23:50 09/28/17 23:50 - ECG O2 Sat by Pulse Oximetry: 98 (RA) Pulse Ox Interpretation: Normal Medical Decision Making Medical Decision Making: Time: 23:19 Impression: 36 year old male with right lower quadrant abdominal pain Initial Plan: --Abd Pelvis CT --CMP --Lactic acid --Lipase --CBC with differentials --Morphine 2 mg IVP --Normal Saline IV 1,000 mls/hr --Urinalysis Time; 01:40 --patient demanding additional opiate mediations in dosage that he specifies. --advised he cannot dictate his care with regards to narcotics --patient has been difficult with nurses and making disparaging comments about staff and facility. --Advised again he would not be given narcotics or meds in specific dosages --requesting Ativan --Upon arrival back from CT wants to leave the hospital and is threatening nurse as well as making continued repeated disparaging statements and demanding Ativan --Security was asked to assist nursing to remove pt IV --Patient has been dispositioned as an AMA who did not sign; upon leaving ED patient told the chargeback analyst Brinda she is an"immaculate cunt." [employer] was called by security to remove the patient from facility. Patient thereafter returned to the ED in a stretcher with [facility], but declined treatment at this facility and left upon triage. Scribe Attestation: Documented by Carla Schneider acting as a scribe for Ady Thakkar MD, MD Scribe Attestation: All medical record entries made by the Scribe were at my direction and personally dictated by me. I have reviewed the chart and agree that the record accurately reflects my personal performance of the history, physical exam, medical decision making, and the department course for this patient. I have also personally directed, reviewed, and agree with the discharge instructions and disposition. Disposition - Clinical Impression Clinical Impression: Abdominal pain - Patient ED Disposition Is Patient to be Admitted: No - Disposition Disposition: Against Medical Advice Disposition Time: 02:00 Condition: FAIR Forms: [email or web address] (Polish)
[2017-09-29 00:19] LABS: BASO % 0.4 % (0.0-2.0); EOS % 0.4 % (0.0-4.0); HEMOGLOBIN 13.2 g/dL (12.0-18.0); LYMPH # 1.2 K/uL (1.0-4.3); LYMPH % 11.7 % (20.0-40.0); MEAN CELL VOLUME 86.9 fl (80.0-94.0); MEAN CORPUSCULAR HEMOGLOBIN 29.7 pg (27.0-31.0); MEAN CORPUSCULAR HGB CONC 34.2 g/dL (33.0-37.0); MEAN PLATELET VOLUME 6.7 fl (7.2-11.7); MONO # 1.3 K/uL (0.0-0.8); NEUT # 7.6 K/uL (1.8-7.0); NEUT % 74.5 % (50.0-75.0); RBC 4.45 Mil/uL (4.40-5.90); RED CELL DISTRIBUTION WIDTH 13.5 % (11.5-14.5); WHITE BLOOD COUNT 10.2 K/uL (4.8-10.8)
[2017-09-29 00:27] LABS: ALB/GLOB RATIO 1.1 (1.0-2.1); ALT/SGPT 43 U/L (21-72); AST/SGOT 25 U/L (17-59); BLOOD UREA NITROGEN 12 mg/dl (9-20); CALCIUM 8.8 mg/dL (8.4-10.2); GFR AFRICAN-AMERICAN > 60; GFR NON-AFRICAN AMERICAN > 60; LIPASE 65 U/L (23-300)
[2017-09-29] MEDS ORDERED: Morphine 4 MG/ML VIAL IVP ONE (01:05)
[2017-09-29] MEDS ORDERED: Iohexol 300 100 ML IJ ONE (01:12)
[2017-09-29] MEDS ORDERED: Morphine 4 MG/ML VIAL ONE (01:13)
[2017-09-29] MEDS ORDERED: Sodium Chloride 0.9% 100 ML ONE (01:31)
[2017-09-29 01:34] LABS: URINE BACTERIA RARE (<OCC); URINE BILIRUBIN NEGATIVE (NEGATIVE); URINE BLOOD MODERATE (NEGATIVE); URINE CLARITY CLOUDY (Clear); URINE COLOR YELLOW (YELLOW); URINE GLUCOSE (UA) NEG (Normal); URINE LEUKOCYTE ESTERASE MOD Leu/uL (Negative); URINE PROTEIN 30 mg/dL (NEGATIVE); URINE UROBILINOGEN 0.2-1.0 mg/dL (0.2-1.0)
[2017-09-29 02:08] LABS: BENZODIAZEPINES, UR NEGATIVE (NEGATIVE)
[2017-09-29 02:15] LABS: BARBITURATES, UR NEGATIVE (NEGATIVE); OPIATES, UR POSITIVE (NEGATIVE); PHENCYCLIDINE, UR NEGATIVE (NEGATIVE)
--- NOTE | 2017-09-29 10:55 | CT ---
PROCEDURE: CT Abdomen and Pelvis with contrast HISTORY: RLQ pain COMPARISON: None. TECHNIQUE: Following oral and intravenous contrast administration, a CT examination of the abdomen and pelvis performed from the domes of the diaphragms to the symphysis pubis with reformatted datasets provided not only axial but also sagittal and coronal series. Contrast dose: Omnipaque 300, 95 cc Radiation dose: Total exam DLP = 557.26 mGy-cm. This CT exam was performed using one or more of the following dose reduction techniques: Automated exposure control, adjustment of the mA and/or kV according to patient size, and/or use of iterative reconstruction technique. FINDINGS: LOWER THORAX: Limited bilateral basilar dependent atelectasis identified. No pleural or pericardial effusion. LIVER: Liver appears upper limits normal size. No gross lesion or ductal dilatation. GALLBLADDER AND BILE DUCTS: Unremarkable. PANCREAS: Unremarkable. No gross lesion or ductal dilatation. SPLEEN: Unremarkable. ADRENALS: Unremarkable. No mass. KIDNEYS AND URETERS: A small area of diminished attenuation is appreciated at the upper midpole right kidney posteriorly suggestive of probable lobar nephronia. No obstructive uropathy. The left kidney is unremarkable throughout. No radiodense urolithiasis bilaterally. VASCULATURE: Unremarkable. No aortic aneurysm. BOWEL: The stomach is completely collapsed. No small or large bowel obstruction. Prominent mural thickening is seen at the mid to distal rectum suspicious for proctitis with neoplasm not completely excluded though not favored. Local perirectal reaction is also identified supporting that diagnosis. APPENDIX: Normal appendix, filled with oral contrast, normal caliber. PERITONEUM: Unremarkable. No free fluid. No free air. LYMPH NODES: Unremarkable. No enlarged lymph nodes. BLADDER: Unremarkable. REPRODUCTIVE: There is questionable thickening of the dermis of the penis and scrotum diffusely, suspicious for cellulitis. Clinically correlate further. BONES: No acute fracture. OTHER FINDINGS: None. IMPRESSION: Potential lobar nephronia upper low pole right kidney posteriorly. Obstructive uropathy bilaterally. Underlying lesion not excluded in this location. Follow-up MRI or ultrasound is advised. Findings suspicious for proctitis of indeterminate origin. Consider infectious or inflammatory causes with neoplasm not excluded. Further clinical correlation is advised. Marked thickening of the scrotum and penile dermis suspicious for cellulitis. Clinically correlate. No emphysematous changes are related at this time. PA review assigned for 2nd impression.
== END 2017-09-29 02:10 | disposition home or self-care (01) ==
LOC: H.ER 22:59
DX: R10.31 Right lower quadrant pain (principal); R11.0 Nausea; E05.00 Thyrotoxicosis with diffuse goiter without thyrotoxic crisis or storm; F32.9 Major depressive disorder, single episode, unspecified; B20 Human immunodeficiency virus [HIV] disease
CPT/HCPCS: 74177; 80053; 81003; 83605; 83690; 85025; 96374; 96376; 99283; G0480; J2270; J7040; Q9967

== ENCOUNTER 2017-09-29 02:49 | Emergency (ER) | payer SELFPAY ==
[2017-09-29 02:50] VITALS: BMI 28.1
== END 2017-09-29 03:00 | disposition left against medical advice (07) ==
LOC: H.ER 02:49
DX: Z02.89 Encounter for other administrative examinations (principal)

== ENCOUNTER 2017-11-18 19:13 | Emergency (ER) | payer SELFPAY ==
[2017-11-18 19:14] VITALS: BMI 28.1
[2017-11-18 19:22] VITALS: O2SAT 100
[2017-11-18] MEDS ORDERED: cefTRIAXone (Rocephin) 250 mg Inj IM STA (19:58)
[2017-11-18] MEDS ORDERED: cefTRIAXone (Rocephin) 250 mg Inj ONE (20:10)
--- NOTE | 2017-11-18 20:16 | ED PDOC ---
HPI: General Adult Time Seen by Provider: 11/18/17 19:27 Chief Complaint (Nursing): Fever Chief Complaint (Provider): Fever History Per: Patient History/Exam Limitations: no limitations Onset/Duration Of Symptoms: Days Current Symptoms Are (Timing): Still Present Additional Complaint(s): 37 year old male with a past medical history of anxiety who presents to the emergency department with multiple complaints. 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 Reports he had redness to the left eye 2 days ago and started using antibiotics which was an old prescription and noted that redness started to spread to the right eye. Associated with yellow discharge. He is also complaining of being called by the health department and told that he should be tested for Gonorrhea and chlamydia due to possible exposure. As well as having penile discharge today. Patient also reports feeling anxious. Overall denies eye pain, fever, decrease in vision, cough, congestion, throat pain, shortness of breath, pain with urination, abdominal pain, rash, and suicidal or homicidal ideation. Past Medical History Reviewed: Historical Data, Nursing Documentation, Vital Signs Vital Signs: Last Vital Signs Temp 98.3 F 11/18/17 19:19 Pulse 71 11/18/17 19:19 Resp 16 11/18/17 19:19 BP 143/88 11/18/17 19:19 Pulse Ox 100 11/18/17 20:54 - Medical History PMH: Depression, Graves' Disease, HIV Denies: Diabetes, Hepatitis, HTN, Seizures, Sexually Transmitted Disease - Surgical History Surgical History: No Surg Hx - Family History Family History: States: Unknown Family Hx - Social History Current smoker - smoking cessation education provided: No Alcohol: None Drugs: Denies - Home Medications Home Medications: Ambulatory Orders Medication Instructions Recorded Dextroamphetamine/Amphetamine 10 mg PO DAILY 12/12/16 [Adderall 10 mg Tablet] Sertraline [Zoloft] 25 mg PO DAILY 12/12/16 buPROPion XL [Wellbutrin XL] 150 mg PO DAILY 12/12/16 clonazePAM [Klonopin] 0.5 mg PO BID PRN 12/12/16 Dicyclomine [Bentyl] 20 mg PO QID PRN #20 tab 09/27/17 Doxycycline Hyclate [Doryx] 100 mg PO BID #14 cap 09/28/17 Moxifloxacin HCl [Vigamox] 1 drop OU TID #1 bottle 11/18/17 - Allergies Allergies/Adverse Reactions: Allergies Allergy/AdvReac Type Severity Reaction Status Date / Time No Known Allergies Allergy Verified 11/18/17 19:18 Review of Systems ROS Statement: Except As Marked, All Systems Reviewed And Found Negative (As per HPI, otherwise negative) Constitutional: Negative for: Fever Eyes: Positive for: Redness (bilaterally), Other (Yellow discharge). Negative for: Pain, Vision Change (decrease in vision) ENT: Negative for: Nose Congestion, Throat Pain Respiratory: Negative for: Cough, Shortness of Breath Gastrointestinal: Negative for: Abdominal Pain Genitourinary Male: Positive for: Penile Discharge. Negative for: Dysuria, Frequency, Incontinence, Hematuria Skin: Negative for: Rash Psych: Positive for: Anxiety. Negative for: Suicidal ideation (homicidal ideation) Physical Exam - Reviewed Nursing Documentation Reviewed: Yes Vital Signs Reviewed: Yes - Physical Exam Comments: GENERAL APPEARANCE: Patient is awake, alert, oriented x 3, is anxious, in mild distress. SKIN: Warm, dry; (-) cyanosis HEAD: (-) scalp swelling, (-) scalp tenderness. EYES: (+) injection to b/l eyes, (-) d/c, (-) edema or erythema to the lids, (- ) conjunctival pallor, (-) scleral icterus, (-) nystagmus. ENMT: Mucous membranes moist. Airway patent: (-) stridor. NECK: (-) tenderness, (-) stiffness, (-) lymphadenopathy. CHEST AND RESPIRATORY: (-) rales, (-) rhonchi, (-) wheezes; breath sounds equal. ABDOMEN: Soft, (-) distention, (-) tenderness, (-) guarding. NEURO AND PSYCH: Mental status as above. Affect: flat agriculture manager: Intact. Pupils equal and reactive; EOMI; (-) facial asymmetry ; tongue and uvula midline. Strength symmetric. - ECG O2 Sat by Pulse Oximetry: 100 (RA) Pulse Ox Interpretation: Normal Medical Decision Making Medical Decision Making: Time: 1957 Initial impression: Initial plan: Zithromax 1000 mg PO Rocephin 250 mg IM Ativan 1 mg PO Chlamydia/GC, RNA, TMA Reevaluation Scribe Attestation: Documented by Gretchen Maki, acting as a scribe for Mireya Cooper PA-C. Provider Scribe Attestation: All medical record entries made by the Scribe were at my direction and personally dictated by me. I have reviewed the chart and agree that the record accurately reflects my personal performance of the history, physical exam, medical decision making, and the department course for this patient. I have also personally directed, reviewed, and agree with the discharge instructions and disposition. Disposition - Clinical Impression Clinical Impression: Conjunctivitis, Anxiety, STD exposure - Patient ED Disposition Is Patient to be Admitted: No Counseled Patient/Family Regarding: Studies Performed, Diagnosis, Need For Followup, Rx Given - Disposition Disposition: Routine/Home Disposition Time: 20:40 Condition: STABLE Additional Instructions: Thank you for letting us take care of you today. You were treated for conjunctivitis, STD exposure, anxiety. The emergency medical care you received today was directed at your acute symptoms. If you were prescribed any medication , please fill it and take as directed. It may take several days for your symptoms to resolve. Return to the Emergency Department if your symptoms worsen , do not improve, or if you have any other problems. Please contact your doctor in 2 days for re-evaluation and follow up. Bring any paperwork you were given at discharge with you along with any medications you are taking to your follow up visit. Our treatment cannot replace ongoing medical care by a primary care provider (PCP) outside of the emergency department. Thank you for allowing the [facility] team to be part of your care today. Prescriptions: Moxifloxacin HCl [Vigamox] 1 drop OU TID #1 bottle Instructions: Anxiety, Adult (DC), Conjunctivitis ([place]), Screening for Sexually Transmitted Infections Forms: [facility] (Jamaican) - PA / INSTRUCTIONAL PARAPROFESSIONAL / Resident Statement MD/DO has reviewed & agrees with the documentation as recorded.
[2017-11-18 21:52] VITALS: BP 140/72; PULSE 81; RESP 18; TEMP 98
== END 2017-11-18 20:51 | disposition home or self-care (01) ==
LOC: H.ER 19:13
DX: H10.9 Unspecified conjunctivitis (principal); F41.9 Anxiety disorder, unspecified; Z20.2 Contact with and (suspected) exposure to infections with a predominantly sexual mode of transmission; E05.00 Thyrotoxicosis with diffuse goiter without thyrotoxic crisis or storm; F32.9 Major depressive disorder, single episode, unspecified
CPT/HCPCS: 87491; 87591; 96372; 99281; J0696